=== PATIENT | female | born 1960 | race Caucasian/White ===

== ENCOUNTER 2025-01-23 19:17 | Emergency (ER) | payer MEDICARE, OTHER ==
[2025-01-23 20:03] LABS: APPEARANCE,URINE CLEAR (CLEAR); GLUCOSE,URINE NEGATIVE (NEGATIVE); OCCULT BLOOD,URINE MODERATE (NEGATIVE)
[2025-01-23 20:14] LABS: SQUAMOUS EPITHELIAL CELLS,UR FEW /HPF (NOT SEEN)
[2025-01-23] MEDS: Take Home: Nitrofurantoin Monohydrate/Macrocrystalline 100 MG, 6 Cap Pack PO ONE (21:03)
== END 2025-01-23 21:05 | disposition home or self-care (01) ==
LOC: DL.ED 19:17
DX: N39.0 Urinary tract infection, site not specified (principal); Z88.0 Allergy status to penicillin; Z88.2 Allergy status to sulfonamides
CPT/HCPCS: 81001; 87086; 87088; 87186; 99283; A9270-GY